=== PATIENT | male | born 1980 | race Caucasian/White ===

== ENCOUNTER 2022-06-08 00:07 | Emergency (ER) | payer OTHER, SELFPAY ==
--- NOTE | ~2022-06-08 | XR_ITS ---
XR tibia fibula LT 2V 06/08/2022 01:02 INDICATION: Left leg pain PROCEDURE: 2 views left lower extremity COMPARISON: No prior studies for comparison. FINDINGS: Fracture, dislocation or subluxation is not identified. The soft tissues appear within norm al limits. No foreign bodies are identified. IMPRESSION: 1: NO ACUTE BONE OR JOINT ABNORMALITY IDENTIFIED. Reviewed, dictated and finalized at location A.
[2022-06-08 00:16] VITALS: BP 130/75; PULSE 101; RESP 18; TEMP 36.3; O2SAT 99
[2022-06-08] MEDS: LIDOCAINE HCL 1% PF 30 ML VIAL 20 ML INFILTRATE (00:49)
[2022-06-08] MEDS: HYDROcodone/acetaminophen (*CRX) 5-325 MG TABLET 1 TAB PO (00:49)
--- NOTE | 2022-06-08 00:52 | ED.WOUNDLAC ---
HPI - Wound/Laceration General Chief Complaint: Wound/Laceration Stated Complaint: Wound to left leg Time Seen by Provider: 06/08/22 00:40 Source: patient Mode of arrival: ambulatory Limitations: no limitations History of Present Illness HPI narrative: This is a 42 year old male that presents to the ER for laceration to the left chin sustained just prior to arrival. Reports he accidentally cut his leg with his machete. Reports bleeding and pain to the area. He is not up-to-date on tetanus. Denies numbness. Related Data Allergies Allergy/AdvReac Type Severity Reaction Status Date / Time No Known Allergies Allergy Verified 06/08/22 00:19 Review of Systems Review of Systems: CONSTITUTIONAL: Denies fever SKIN: Reports laceration All systems reviewed & are unremarkable except as noted in HPI and below PMFSH Past Medical History Medical History (Updated 06/08/22 @ 01:39 by Carissa Harper PA-C) History of depression Social History Social History (Updated 06/08/22 @ 00:56 by Carissa Harper PA-C) Substance use: never Exam Narrative: GENERAL: Well-appearing, well-nourished, and in no acute distress. HEAD: Normocephalic, atraumatic. EYES: EOMI. EXTREMITIES: Normal range of motion. No edema. Left anterior lower leg with 3cm linear laceration into subcutaneous tissue. Normal DP pulse SKIN: Warm, dry, no rash. NEURO: No focal deficits. Alert and oriented x3. PSYCH: Normal mood and affect Course Vital Signs Vital signs: Vital Signs Temperature 97.3 F L 06/08/22 00:16 Pulse Rate 101 H 06/08/22 00:16 Respiratory Rate 18 06/08/22 00:16 Blood Pressure 130/75 06/08/22 00:16 Pulse Oximetry 99 06/08/22 00:16 Oxygen Delivery Room Air 06/08/22 00:16 Temperature 97.3 F L 06/08/22 00:16 Pulse Rate 101 H 06/08/22 00:16 Respiratory Rate 18 06/08/22 00:16 Blood Pressure 130/75 06/08/22 00:16 Pulse Oximetry 99 06/08/22 00:16 Oxygen Delivery Room Air 06/08/22 00:16 Procedures Laceration Laceration 1: Date: 06/08/22 Time: 01:36 Site: lower extremity Side (If applicable): left Size (cm): 3 Description: linear Depth: simple, single layer Local Anesthetic: lidocaine 1% Amount of anesthesia used (mL): 6 Pre-repair: wound explored and irrigated ====== Skin Level ====== Skin layer closed with: nylon Size (cm): 4-0 Number of sutures: 5 Technique: simple, interrupted ====== Subcutaneous Layer ====== ====== Muscle Layer ====== ====== Tendon Layer ====== MDM - Wound/Laceration MDM Narrative Medical decision making narrative: Patient presents to the emergency department for a laceration to the left leg sustained just prior to arrival. Patient is neurovascularly intact. Wound was irrigated and closed with sutures. Patient was updated on tetanus. Left tib-fib x-ray without acute osseous abnormality. Patient was educated on wound care. He is to follow-up with primary care provider. He was given warnings to return to the ER Imaging Data My impression: Left tib/fib x-ray: No acute osseous abnormality or evidence of foreign body Critical Care Time Critical Care Time Critical Care Time: No Discharge Plan Discharge Clinical Impression: Laceration Patient Disposition: Home, Self-Care Condition: Stable Instructions: Care For Your Stitches (ED), Laceration (ED) Additional Instructions: Return to the emergency department if you experience fever, redness or swelling of your wound, abnormal drainage from your wound, or any other symptoms that are concerning to you. Apply antibiotic ointment daily. Do not soak the wound. Clean with mild soap and water daily Follow-up with your primary care doctor for suture removal in 10-14 days. Follow-up/Referrals: PHYSICIAN,[facility] [Primary Care Provider] - Francisco De Santiago MD [Physician] - 2 Weeks
[2022-06-08] MEDS: TETANUS,DIPHTHERIA,AC PERTUSSIS ADULT (0.5 ML) BOOSTRIX IM (01:39)
--- NOTE | 2022-06-12 00:20 | PC.NURSE ---
triage note incorrect. pt laceration to right leg.
== END 2022-06-08 02:02 | disposition home or self-care (01) ==
PROVIDERS: Emergency Provider Emergency Medicine
DX: S81.812A Laceration without foreign body, left lower leg, initial encounter (principal); Z23 Encounter for immunization; W26.0XXA Contact with knife, initial encounter
CPT/HCPCS: 12002; 73590; 90471; 90715; 99283; A9270